=== PATIENT | female | born 1990 | race African-American/Black ===

== ENCOUNTER 2017-07-28 15:15 | Emergency (ER) | payer BC ==
[2017-07-28] MEDS ORDERED: Ondansetron ODT 8 MG TAB ONE (15:46)
== END 2017-07-28 17:00 | disposition home or self-care (01) ==
LOC: ERS 15:15
DX: R11.2 Nausea with vomiting, unspecified (principal); R19.7 Diarrhea, unspecified; F41.9 Anxiety disorder, unspecified
CPT/HCPCS: 99283

== ENCOUNTER 2019-12-25 22:53 | Emergency (ER) | payer BC ==
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
== END 2019-12-26 02:00 | disposition home or self-care (01) ==
LOC: ERS 22:53
DX: S06.9X9A Unspecified intracranial injury with loss of consciousness of unspecified duration, initial encounter (principal); S05.12XA Contusion of eyeball and orbital tissues, left eye, initial encounter; F41.9 Anxiety disorder, unspecified; Y09 Assault by unspecified means
CPT/HCPCS: 70450; 70486

== ENCOUNTER 2020-07-23 20:02 | Emergency (ER) | payer BC ==
[2020-07-23 21:20] LABS: Bilirubin Negative (Negative); Blood, Urine Moderate (Negative); Glucose, Urine (Dipstick) Negative (Negative); Ketone, Urine 15 mg/dL (Negative); Leukocyte Moderate (Negative); Nitrite Negative (Negative); Protein, Urine (Dipstick) 100 mg/dL (Neg-Trace); Urobilinogen 0.2 mg/dL (Less than 2)
[2020-07-23 21:22] LABS: Clarity Turbid (Clear)
[2020-07-23 21:23] LABS: Specific Gravity, Urine 1.028 (1.002-1.036)
[2020-07-23 21:24] LABS: Pregnancy Test - Urine (BHCG) Negative (Negative); Pregu Control Background? CLEAR/WHITE (CLR/WHITE); Pregu Control Bar Appear? YES (CONTROL BAR); Specific Gravity 1.028 (1.002-1.036)
[2020-07-23 21:31] LABS: Bacteria/HPF 4+ HPF (None Seen); RBC/HPF 0-3 HPF (0-3); WBC/HPF Greater than 50 HPF (0-3)
== END 2020-07-23 21:50 | disposition home or self-care (01) ==
LOC: ERS 20:02
DX: N39.0 Urinary tract infection, site not specified (principal); Z79.899 Other long term (current) drug therapy
CPT/HCPCS: 81003; 81015; 81025; 87077; 87086; 87186; 99283

== ENCOUNTER 2021-11-27 08:45 | Emergency (ER) | payer BC, SELFPAY ==
[2021-11-27] MEDS ORDERED: Dexamethasone 10 MG/ML VIAL ONE (09:32)
== END 2021-11-27 09:52 | disposition home or self-care (01) ==
LOC: ERS 08:45
DX: J02.0 Streptococcal pharyngitis (principal)
CPT/HCPCS: 87430; 99283; J1100

== ENCOUNTER 2021-12-10 19:48 | Emergency (ER) | payer SELFPAY | END 2021-12-10 22:22 | disposition home or self-care (01) | LOC: ERS 19:48 | DX: H92.01 Otalgia, right ear (principal) | CPT/HCPCS: 99281 ==

== ENCOUNTER 2022-09-22 15:05 | Emergency (ER) | payer OTHER, SELFPAY | END 2022-09-22 16:05 | disposition home or self-care (01) | LOC: ERS 15:05 | DX: S16.1XXA Strain of muscle, fascia and tendon at neck level, initial encounter (principal); V47.5XXA Car driver injured in collision with fixed or stationary object in traffic accident, initial encounter | CPT/HCPCS: 70450; 72125 ==

== ENCOUNTER 2023-08-04 02:21 | Emergency (ER) | payer BC ==
[2023-08-04] MEDS ORDERED: Acetaminophen 500 MG TAB ONE (03:05)
[2023-08-04 04:51] LABS: Influenza A by NAA Not Detected (NotDetected); Influenza B by NAA Not Detected (NotDetected); SARS-CoV-2 NAA Rapid Test Not Detected (NotDetected)
== END 2023-08-04 04:02 | disposition home or self-care (01) ==
LOC: ERS 02:21
DX: J06.9 Acute upper respiratory infection, unspecified (principal)
CPT/HCPCS: 87081; 87430; 99283